=== PATIENT | male | born 1965 | race Caucasian/White ===

== ENCOUNTER 2018-05-08 10:47 | Emergency (ER) | payer OTHER ==
[2018-05-08] MEDS ORDERED: BUPIVACAINE 0.5% PF 10 ML VIAL SUBQ STA (11:43)
--- NOTE | 2018-05-08 13:22 | ED Physician Documentation ---
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: No Smoking Status: Never smoker - Immunizations Immunizations are current?: Yes Immunizations: TDAP current <10years PD ED PE NORMAL - Vitals Vital signs reviewed: Yes - Extremities Extremities: Other (1.5 cm lac tip 5th L finger, MSV intact) Results - Vitals Vitals: Vital Signs - 24 hr 05/08/18 10:52 Temperature 36.9 C Heart Rate 94 Respiratory 20 Rate Blood Pressure 124/74 O2 Saturation 97 Oxygen O2 Source Room air Procedures - Laceration (location) L 5th finger Length in cm: 1.5 Wound type: Curved Neurovascular status: Sensory intact, Motor intact Anesthesia: Marcaine 0.5% Wound Preparation: Irrigated copiously NS (nurse) Skin layer closure: Nylon, Size #-0 - enter number (5), Sutures - enter # (3) Other: Patient tolerated well, No complications, Dressing applied, Tetanus UTD Complexity: Simple PD MEDICAL DECISION MAKING - Sepsis Event Vital Signs: Vital Signs - 24 hr 05/08/18 10:52 Temperature 36.9 C Heart Rate 94 Respiratory 20 Rate Blood Pressure 124/74 O2 Saturation 97 Oxygen O2 Source Room air Departure - Departure Disposition: 01 Home, Self Care Clinical Impression: Laceration Condition: Good Instructions: ED Laceration Hand Comments: May wash hand Apply antibiotic ointment twice daily Sutures out in 7 days This wound is low risk for infection - but even low risk wounds with good wound care occasionally get infected - if you notice redness swelling streaks drainage fever or increasing pain, please come back to the ER for a recheck
[2018-05-08] MEDS ORDERED: BACITRACIN OINT TOP ONE (13:24)
[2018-05-08 13:35] VITALS: BP 146/85
== END 2018-05-08 13:42 | disposition home or self-care (01) ==
LOC: ED 10:47
DX: S61.217A Laceration without foreign body of left little finger without damage to nail, initial encounter (principal); W26.0XXA Contact with knife, initial encounter; Y93.G1 Activity, food preparation and clean up; Y92.511 Restaurant or cafe as the place of occurrence of the external cause; Y99.0 Civilian activity done for income or pay
CPT/HCPCS: 12001; 99282; 99283; A9270; 1040M

== ENCOUNTER 2018-06-24 02:50 | Outpatient (CLI) | payer SELFPAY | END 2018-06-24 02:51 | disposition short-term general hospital (02) | LOC: EMS 02:50 | PROVIDERS: ATTEND Surgery | DX: T21.34XA Burn of third degree of lower back, initial encounter (principal); T24.391A Burn of third degree of multiple sites of right lower limb, except ankle and foot, initial encounter; X01.0XXA Exposure to flames in uncontrolled fire, not in building or structure, initial encounter; Y92.833 Campsite as the place of occurrence of the external cause ==

== ENCOUNTER 2019-05-21 17:17 | Emergency (ER) | payer OTHER, MEDICAID ==
--- NOTE | 2019-05-21 18:12 | XRAY Report ---
Reason: Trauma Procedure Date: 05/21/2019 Accession Number: [id number] / [id number] Procedure: XR - Finger(s) LT CPT Code: FULL RESULT: EXAM: LEFT 4th DIGIT RADIOGRAPHY EXAM DATE: 05/21/2019 05:46 PM. CLINICAL HISTORY: Trauma. COMPARISON: None. TECHNIQUE: 3 views. FINDINGS: Bones: Normal. No fracture or bone lesion. Joints: Normal. No subluxations. Soft Tissues: Normal. No soft tissue swelling. IMPRESSION: No acute displaced fracture or malalignment. Unremarkable soft tissues. RADIA
[2019-05-21 19:28] VITALS: BP 166/83
--- NOTE | 2019-05-21 21:08 | ED Physician Documentation ---
History of Present Illness - Stated complaint Stated Complaint: L FINGER LAC - Chief complaint Chief Complaint: Laceration - Additonal information Additional information: This is a 54-year-old male who presents with a injury to his left index finger middle finger and pinky. He was at work and his finger got stuck in a sliding door track. States that they had to pry open the door to remove his fingers. He had immediate bleeding over his left ring finger. He denies injury elsewhere into his body. He is up-to-date with his tetanus, which was last given 4 years ago. His pain is currently mild-moderate, worse with direct palpation. 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) - Past Surgical History Past Surgical History: No - Present Medications Home Medications: Ambulatory Orders Medication Instructions Recorded Confirmed No Known Home Medications 05/08/18 05/08/18 - Allergies Allergies/Adverse Reactions: Allergies Allergy/AdvReac Type Severity Reaction Status Date / Time Penicillins Allergy Hives Verified 05/08/18 10:54 - Social History Does the pt smoke?: No Smoking Status: Never smoker - Immunizations Immunizations are current?: Yes Immunizations: TDAP current <10years PD ED PE NORMAL - Vitals Vital signs reviewed: Yes - General General: Alert and oriented X 3, No acute distress - HEENT HEENT: Atraumatic - Cardiac Cardiac: Strong equal pulses - Respiratory Respiratory: No respiratory distress - Abdomen Abdomen: Non distended - Extremities Extremities: Other (There is a 1.5 cm laceration on the distal palmar aspect of the index finger which has constant oozing. Sensation Just distal to the laceration is reduced, otherwise sensation is normal over the it is mildly tender to palpation over the area the laceration, the remainder of the digit is nontender. He is able to flex his DIP, as well as PIP and MCP without issue. Capillary refill is brisk. ) - Neuro Neuro: Alert and oriented X 3 - Psych Psych: Normal mood, Normal affect Results - Vitals Vitals: Vital Signs - 24 hr 05/21/19 05/21/19 17:30 19:27 Temperature 36.4 C L Heart Rate 80 83 Respiratory 15 16 Rate Blood Pressure 160/102 H 166/83 H O2 Saturation 98 98 Oxygen O2 Source Room air - Rads (name of study) left Radiology: Other (No bony abnormalities) Procedures - Laceration (location) left ring finger Length in cm: 1.5 Wound type: Linear Neurovascular status: Motor intact, Vascular intact Tendon involvement: Tendon intact Anesthesia: Lidocaine 1%, With bicarb Wound Preparation: Irrigated copiously NS, Wound explored, To the base Skin layer closure: Other (5-0 ethilon, simple interrupted) Other: Patient tolerated well, No complications, Neurovascular intact, Dressing applied, Tetanus UTD Complexity: Simple PD MEDICAL DECISION MAKING - ED course Complexity details: considered differential (Laceration, fracture, contusion, crush injury) ED course: On exam patient is neurovascularly intact, he has 1 laceration to his left index finger which does require repair. He does have very slight abrasions to his pinky and middle finger, these fingers are nontender and have no lacerations that require repair. The laceration on the ring finger was repaired as noted above. X-ray shows no fracture of the fingers and given his exam I have a low suspicion for occult fracture. His Tdap is up-to-date. I discussed wound care and the timeline for suture follow-up. Also discussed return precautions with emphasis on signs of infection. Patient agreed with this plan and was discharged home. Departure - Departure Disposition: 01 Home, Self Care Clinical Impression: Laceration Condition: Good Instructions: ED Laceration Ext Sutr Stap Tape Follow-Up: Your,PCP [Other] (For suture removal in 7-10 days) Comments: Your stitches should be removed in 7 to 10 days. You may shower run water over the finger, but do not soak or scrub it. Keep a clean bandage over the finger. If you develop signs of infection such as redness streaking up your hand, Return to the emergency department. Discharge Date/Time: 05/21/19 23:20
[2019-05-21] MEDS ORDERED: BUFFERED LIDOCAINE 10 ML SYRINGE SUBQ STA (22:08)
== END 2019-05-21 23:20 | disposition home or self-care (01) ==
LOC: ED 17:17
DX: S61.215A Laceration without foreign body of left ring finger without damage to nail, initial encounter (principal); S61.211A Laceration without foreign body of left index finger without damage to nail, initial encounter; S60.413A Abrasion of left middle finger, initial encounter; S60.417A Abrasion of left little finger, initial encounter; W23.0XXA Caught, crushed, jammed, or pinched between moving objects, initial encounter; Y99.0 Civilian activity done for income or pay
CPT/HCPCS: 1040M; 12001; 73140; 99283

== ENCOUNTER 2019-06-06 13:08 | Emergency (ER) | payer MEDICAID, OTHER ==
[2019-06-06 13:15] VITALS: BP 134/89
--- NOTE | 2019-06-06 13:53 | ED Physician Documentation ---
PD HPI SKIN - Stated complaint Stated Complaint: STITCH REMOVAL - Chief complaint Chief Complaint: Wound - History obtained from History obtained from: Patient - History of Present Illness Timing - onset: Other (Stitches to the left fourth finger 2 weeks ago. No apparent complications. Here for removal. 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) - Past Surgical History Past Surgical History: No - Present Medications Home Medications: Ambulatory Orders Medication Instructions Recorded Confirmed No Known Home Medications 05/08/18 05/08/18 - Allergies Allergies/Adverse Reactions: Allergies Allergy/AdvReac Type Severity Reaction Status Date / Time Penicillins Allergy Hives Verified 05/08/18 10:54 - Social History Does the pt smoke?: No Smoking Status: Never smoker - Immunizations Immunizations are current?: Yes Immunizations: TDAP current <10years PD ED PE NORMAL - Vitals Vital signs reviewed: Yes - General General: Alert and oriented X 3, No acute distress - Extremities Extremities: Other (4 stitches in the left fourth finger, no evidence of infection or dehiscence. They were removed during examination without issue.) - Neuro Neuro: Alert and oriented X 3, Normal speech Results - Vitals Vitals: Vital Signs - 24 hr 06/06/19 13:12 Temperature 36.5 C Heart Rate 96 Respiratory 18 Rate Blood Pressure 134/89 H O2 Saturation 100 Oxygen O2 Source Room air Departure - Departure Disposition: 01 Home, Self Care Clinical Impression: Visit for suture removal Condition: Good Record reviewed to determine appropriate education?: Yes
== END 2019-06-06 13:53 | disposition home or self-care (01) ==
LOC: ED 13:08
DX: S61.215D Laceration without foreign body of left ring finger without damage to nail, subsequent encounter (principal); X58.XXXD Exposure to other specified factors, subsequent encounter
CPT/HCPCS: 99281

== ENCOUNTER 2019-07-18 10:48 | Emergency (ER) | payer MEDICAID ==
--- NOTE | 2019-07-18 11:18 | ED Physician Documentation ---
PD HPI LOWER EXT INJURY - Stated complaint Stated Complaint: RT FOOT PX - Chief complaint Chief Complaint: Ext Problem - History obtained from History obtained from: Patient - History of Present Illness PD HPI LOW EXT INJURY LOCATION: Right, Foot Type of injury: No: Fall, Twist, Blunt / blow, Penetrating / stab / GSW, Laceration, Puncture wound, Foreign body, Crush, Burn, Other Timing - onset: How many days ago (5) Timing - duration: Days (5) Timing - details: Gradual onset Pain level max: 10 Pain level now: 4 Improved by: Other (Tylenol with some relief) Worsened by: Moving, Palpating, Other (standing) Associated symptoms: Tingling (Ball of the foot and great toe), Swelling (dorsal foot). 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 Since that time 5 days ago however he has had increasing pain in the foot up to a 10 out of 10 when he tries to walk on it. Just sitting here talking me is about a 4 out of 10. Seems to be sore at the ball of his foot whenever he puts weight on it but then also at the metatarsal tarsal joint laterally in the foot and he noticed some swelling in it today. Is a little bit of tingling in the ball of his foot but also add across the big toe. He denies any known injury. He is not diabetic. He is been taking Tylenol that seemed to help the pain a little bit. Denies any history of gout but has a family history of gout. He has not had fever. Other than his chronic stiffness in his hands he has not had no other joint involvement. 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) - Past Surgical History Past Surgical History: No - Present Medications Home Medications: Ambulatory Orders Medication Instructions Recorded Confirmed No Known Home Medications 05/08/18 05/08/18 - Allergies Allergies/Adverse Reactions: Allergies Allergy/AdvReac Type Severity Reaction Status Date / Time Penicillins Allergy Hives Verified 07/18/19 10:54 - Social History Does the pt smoke?: No Smoking Status: Never smoker - Immunizations Immunizations are current?: Yes Immunizations: TDAP current <10years PD ED PE NORMAL - Vitals Vital signs reviewed: Yes - General General: Alert and oriented X 3, No acute distress, Well developed/nourished - HEENT HEENT: Atraumatic - Derm Derm: Normal color, Warm and dry, No rash - Extremities Extremities: Other (Minimal edema noted to the dorsal aspect of the right foot and some slight erythema but no associated warmth. There is tenderness at the tarsometatarsal joint along the lateral dorsal foot. He has a palpable dorsalis pedis pulse he is able to wiggle his toes and sensation is intact to light touch. There are no lesions noted on the sole of his foot and the webspaces are clear without any lesions. No swelling or pain at the first MTP joint.) - Neuro Neuro: Alert and oriented X 3, No motor deficit, No sensory deficit - Psych Psych: Normal mood, Normal affect Results - Vitals Vitals: Vital Signs - 24 hr 07/18/19 10:54 Temperature 36.5 C Heart Rate 95 Respiratory 18 Rate Blood Pressure 140/80 H O2 Saturation 97 Oxygen O2 Source Room air - Labs Labs: Laboratory Tests 07/18/19 07/18/19 11:55 11:55 WBC 7.1 RBC 4.70 Hgb 14.5 Hct 43.0 MCV 91.5 MCH 30.9 MCHC 33.7 RDW 12.8 Plt Count 235 MPV 9.4 Neut # (Auto) 4.6 Lymph # (Auto) 1.6 [place] # (Auto) 0.6 Eos # (Auto) 0.2 Baso # (Auto) 0.1 Absolute Nucleated RBC 0.00 Nucleated RBC % 0.0 Uric Acid 5.5 - Rads (name of study) right foot Radiology: EMP read indepedently, EMP read contemporaneously (neg fracture), See rad report (small bunion) PD MEDICAL DECISION MAKING - ED course Complexity details: d/w patient ED course: Imaging showed no obvious fracture or significant arthritis. The radiologist read a small bunion noted. His white blood cell count is normal and uric acid is normal. Will discuss results and recommend ibuprofen as an anti- inflammatory. Minimizing weightbearing currently and follow-up with primary care provider if his symptoms persist for further management. Departure - Departure Disposition: Home, Self Care Clinical Impression: Sprain of foot, right Qualifiers: Encounter type: initial encounter Qualified Code(s): S93.601A - Unspecified sprain of right foot, initial encounter Condition: Good Instructions: ED Sprain Foot Follow-Up: [facility] [Provider Group] Comments: Take ibuprofen or Aleve [id number] for the pain and swelling. Elevate and ice the foot to help with the pain. Minimize the amount of walking you are doing for the time being. Follow-up with your primary care provider if the symptoms are not resolving over the course of 7 to 10 days. Follow-up sooner if you have increased swelling, develop a fever, have red streaking up the leg or other problems arise.
[2019-07-18] MEDS ORDERED: IBUPROFEN 600 MG TABLET PO STA (11:36)
[2019-07-18 12:12] LABS: BASOPHILS # (AUTO) 0.1 10^3/uL (0.0-0.1); BASOPHILS % (AUTO) 0.8 %; EOSINOPHILS # (AUTO) 0.2 10^3/uL (0.0-0.7); EOSINOPHILS % (AUTO) 3.2 %; HGB - HEMOGLOBIN 14.5 g/dL (14.0-18.0); LYMPHOCYTES # (AUTO) 1.6 10^3/uL (1.5-3.5); LYMPHOCYTES % (AUTO) 22.5 %; MEAN CORPUSCULAR HEMOGLOBIN 30.9 pg (27.0-31.0); MEAN CORPUSCULAR HGB CONC 33.7 g/dL (32.0-36.0); MEAN CORPUSCULAR VOLUME 91.5 fL (80.0-94.0); MEAN PLATELET VOLUME 9.4 fL (7.4-11.4); MONOCYTES # (AUTO) 0.6 10^3/uL (0.0-1.0); MONOCYTES % (AUTO) 8.3 %; NEUTROPHILS # (AUTO) 4.6 10^3/uL (1.5-6.6); NEUTROPHILS % (AUTO) 64.8 %; PLT - PLATELET COUNT 235 10^3/uL (130-450); RED CELL DISTRIBUTION WIDTH 12.8 % (12.0-15.0); WHITE BLOOD COUNT 7.1 x10^3/uL (4.8-10.8)
--- NOTE | 2019-07-18 12:13 | XRAY Report ---
Reason: right foot pain Procedure Date: 07/18/2019 Accession Number: [id number] / [id number] Procedure: XR - Foot 3 View RT CPT Code: Final Report FULL RESULT: EXAM: RIGHT FOOT RADIOGRAPHY EXAM DATE: 07/18/2019 11:49 AM. CLINICAL HISTORY: Right foot pain. COMPARISON: None. TECHNIQUE: 3 views. FINDINGS: Bones: No fracture. No bone lesion. Joints: No dislocation. Hallux valgus with first metatarsal phalangeal joint angle measuring 24 degrees. Soft Tissues: Normal. No soft tissue swelling. IMPRESSION: 1. No fracture or dislocation. 2. Small bunion RADIA
[2019-07-18 12:53] VITALS: BP 136/90
== END 2019-07-18 13:02 | disposition home or self-care (01) ==
LOC: ED 10:48
DX: S93.601A Unspecified sprain of right foot, initial encounter (principal); X58.XXXA Exposure to other specified factors, initial encounter; M21.611 Bunion of right foot; M20.11 Hallux valgus (acquired), right foot
CPT/HCPCS: 36415; 73630; 84550; 85025; 99281; 99282; A9270

== ENCOUNTER 2019-07-26 11:02 | Outpatient (CLI) | payer MEDICAID ==
--- NOTE | 2019-07-26 16:00 | XRAY Report ---
Reason: FOOT PAIN, RIGHT Procedure Date: 07/26/2019 Accession Number: [id number] / [id number] Procedure: XRS - Foot 3 View RT CPT Code: Final Report FULL RESULT: EXAM: RIGHT FOOT RADIOGRAPHY EXAM DATE: 07/26/2019 11:14 AM. CLINICAL HISTORY: Foot pain, right. COMPARISON: FOOT 3 VIEW RT 07/18/2019 11:31 AM. TECHNIQUE: 3 views. FINDINGS: Bones: Normal. No fractures or bone lesions. Joints: Normal. No subluxations. Soft Tissues: Normal. No soft tissue swelling. IMPRESSION: Stable exam with no acute or subacute abnormality detected. RADIA
[2019-07-26 17:16] LABS: BASOPHILS # (AUTO) 0.1 10^3/uL (0.0-0.1); BASOPHILS % (AUTO) 0.8 %; EOSINOPHILS # (AUTO) 0.1 10^3/uL (0.0-0.7); EOSINOPHILS % (AUTO) 1.7 %; LYMPHOCYTES # (AUTO) 1.5 10^3/uL (1.5-3.5); LYMPHOCYTES % (AUTO) 17.8 %; MEAN CORPUSCULAR HEMOGLOBIN 29.4 pg (27.0-31.0); MEAN CORPUSCULAR HGB CONC 32.2 g/dL (32.0-36.0); MEAN CORPUSCULAR VOLUME 91.2 fL (80.0-94.0); MEAN PLATELET VOLUME 9.9 fL (7.4-11.4); MONOCYTES # (AUTO) 0.5 10^3/uL (0.0-1.0); MONOCYTES % (AUTO) 5.5 %; NEUTROPHILS # (AUTO) 6.2 10^3/uL (1.5-6.6); NEUTROPHILS % (AUTO) 73.7 %; PLT - PLATELET COUNT 259 10^3/uL (130-450); RED BLOOD COUNT 5.11 10^6/uL (4.70-6.10); RED CELL DISTRIBUTION WIDTH 13.2 % (12.0-15.0); WHITE BLOOD COUNT 8.4 x10^3/uL (4.8-10.8)
== END 2019-07-26 11:03 | disposition home or self-care (01) ==
LOC: DI.S 11:02
PROVIDERS: ATTEND Family Medicine
DX: M79.671 Pain in right foot (principal)
CPT/HCPCS: 36415; 85025; 85651; 86140

== ENCOUNTER 2023-01-09 08:00 | Outpatient (CLI) | payer MEDICAID | END 2023-01-09 23:59 | disposition home or self-care (01) | LOC: LAB 08:00 | PROVIDERS: ATTEND Internal Medicine | DX: J02.9 Acute pharyngitis, unspecified (principal) | CPT/HCPCS: 87070 ==

== ENCOUNTER 2023-03-12 16:20 | Outpatient (CLI) | payer MEDICAID ==
[2023-03-12 21:28] LABS: BILIRUBIN,URINE NEGATIVE (NEGATIVE); GLUCOSE, URINE (UA) NEGATIVE (NEGATIVE); KETONES,URINE (UA) NEGATIVE (NEGATIVE); LEUKOCYTE ESTERASE, URINE NEGATIVE (NEGATIVE); NITRITE,URINE NEGATIVE (NEGATIVE); OCCULT BLOOD,URINE LARGE (NEGATIVE); PH,URINE 5.5 PH (5.0-7.5); PROTEIN,URINE 100 mg/dL (NEGATIVE); UROBILINOGEN,URINE 0.2 (NORMAL) E.U./dL (NORMAL)
[2023-03-12 21:33] LABS: CLARITY,URINE CLOUDY (CLEAR)
[2023-03-12 21:37] LABS: BACTERIA,URINE None Seen /HPF (None Seen); RBC,URINE TNTC /HPF (0-5); SQUAMOUS EPITHELIAL CELL,UR NONE SEEN (<= Few); WBC,URINE 0-3 /HPF (0-3)
--- NOTE | 2023-03-12 23:32 | XRAY Report ---
PROCEDURE: Abdomen 1 View X-Ray INDICATIONS: HEMATURIA TECHNIQUE: One view of the abdomen acquired. COMPARISON: None. FINDINGS: Surgical changes and devices: None. Bowel: Bowel gas pattern is normal. Soft tissues: No definite radiopaque renal stones identified. There are 2 small densities projecting over the right hemipelvis measuring up to 0.2 cm suggestive of phleboliths. Bones: No suspicious bony lesions. IMPRESSION: 1. No definite radiopaque renal stones. Reviewed by: Chay Pink MD on 03/12/2023 11:31 PM PDT Approved by: Chay Pink MD on 03/12/2023 11:31 PM PDT Station ID: [id number]
== END 2023-03-12 23:59 | disposition home or self-care (01) ==
LOC: DI.S 16:20
PROVIDERS: ATTEND Emergency Medicine
DX: R31.9 Hematuria, unspecified (principal)
CPT/HCPCS: 81001; 87086

== ENCOUNTER 2023-03-12 21:35 | Emergency (ER) | payer MEDICAID ==
--- NOTE | 2023-03-12 22:16 | ED Physician Documentation ---
History of Present Illness - Stated complaint Stated Complaint: MALE - Chief complaint Chief Complaint: Abd Pain - History obtained from History obtained from: Patient - Additonal information Additional information: 4-year-old man presents to the emergency department with nonbloody nonbilious nausea and vomiting and right lower quadrant pain today. He was seen in clinic and had a urinalysis showing large amount of blood but no infection. Denies fever Review of Systems Constitutional: denies: Fever Cardiac: denies: Chest pain / pressure Respiratory: denies: Dyspnea GI: reports: Abdominal Pain, Nausea, Vomiting. denies: Diarrhea, Bloody / black stool : reports: Hematuria (discoloration of urine). 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) - Past Surgical History Past Surgical History: No - Present Medications Home Medications: Ambulatory Orders Medication Instructions Recorded Confirmed Atorvastatin Calcium 1 cap PO DAILY 03/12/23 Metoprolol/Hydrochlorothiazide 1 cap PO DAILY 03/12/23 [Metoprolol-Hctz 50-25 mg Tab] Sertraline [Zoloft] 25 mg PO DAILY 03/12/23 - Allergies Allergies/Adverse Reactions: Allergies Allergy/AdvReac Type Severity Reaction Status Date / Time Penicillins Allergy Hives Verified 03/12/23 21:48 - Social History Does the pt smoke?: No Smoking Status: Never smoker Does the pt drink ETOH?: No - Immunizations Immunizations are current?: Yes Immunizations: TDAP current <10years PD ED PE NORMAL - Vitals Vital signs reviewed: Yes - General General: Alert and oriented X 3, Well developed/nourished, Other (mild to moderate distress) - HEENT HEENT: Atraumatic, PERRL, EOMI - Neck Neck: Supple, no meningeal sign - Cardiac Cardiac: RRR - Respiratory Respiratory: No respiratory distress, Clear bilaterally - Abdomen Abdomen: Non tender, Non distended - Derm Derm: Normal color, Warm and dry - Extremities Extremities: No deformity - Neuro Neuro: No motor deficit, No sensory deficit - Psych Psych: Normal mood, Normal affect Results - Vitals Vitals: Vital Signs - 24 hr 03/12/23 21:36 Temperature 3.5 C L Heart Rate 74 Respiratory 17 Rate Blood Pressure 185/97 H O2 Saturation 98 Oxygen O2 Source Room air - Labs Labs: Laboratory Tests 03/12/23 03/12/23 22:51 22:51 WBC 14.4 H RBC 4.69 L Hgb 13.3 L Hct 41.1 L MCV 87.6 MCH 28.4 MCHC 32.4 RDW 13.8 Plt Count 259 MPV 9.9 Neut # (Auto) 12.4 H Lymph # (Auto) 1.3 L [place] # (Auto) 0.5 Eos # (Auto) 0.1 Baso # (Auto) 0.1 Absolute Nucleated RBC 0.00 Nucleated RBC % 0.0 Sodium 132 L Potassium 3.4 L Chloride 100 L Carbon Dioxide 22 Anion Gap 10.0 BUN 13 Creatinine 1.4 H Estimated GFR (MDRD) 52 L Glucose 194 H Calcium 9.1 PD Medical Decision Making - ED course ED course: 58-year-old man presents to the ED with suspected kidney stones. UA showed large blood and protein but no signs of infection. CBC, abdominal panel ordered. CT without contrast ordered as well. Pain controlled with IV morphine and Zofran. labs significant for mild ruiz with cre 1.4, up from baseline of 1. also with leukocytosis Wbc 14.4 but u/a showed no infection and he is afebrile. likely inflammatory reaction. ct report pending. Departure - Departure Clinical Impression: RUIZ (acute kidney injury) Forms: PCP List
[2023-03-12] MEDS ORDERED: ONDANSETRON ODT 4 MG TABLET TL STA (22:33)
[2023-03-12] MEDS ORDERED: oxyCODONE 5 MG TABLET PO STA (22:33)
[2023-03-12 22:59] LABS: BASOPHILS # (AUTO) 0.1 10^3/uL (0.0-0.1); BASOPHILS % (AUTO) 0.6 %; EOSINOPHILS # (AUTO) 0.1 10^3/uL (0.0-0.7); EOSINOPHILS % (AUTO) 0.6 %; HCT - HEMATOCRIT 41.1 % (42.0-52.0); HGB - HEMOGLOBIN 13.3 g/dL (14.0-18.0); LYMPHOCYTES # (AUTO) 1.3 10^3/uL (1.5-3.5); LYMPHOCYTES % (AUTO) 8.9 %; MEAN CORPUSCULAR HEMOGLOBIN 28.4 pg (27.0-31.0); MEAN CORPUSCULAR HGB CONC 32.4 g/dL (32.0-36.0); MEAN CORPUSCULAR VOLUME 87.6 fL (80.0-94.0); MEAN PLATELET VOLUME 9.9 fL (7.4-11.4); MONOCYTES # (AUTO) 0.5 10^3/uL (0.0-1.0); MONOCYTES % (AUTO) 3.7 %; NEUTROPHILS # (AUTO) 12.4 10^3/uL (1.5-6.6); NEUTROPHILS % (AUTO) 85.7 %; PLT - PLATELET COUNT 259 10^3/uL (130-450); RED BLOOD COUNT 4.69 10^6/uL (4.70-6.10); RED CELL DISTRIBUTION WIDTH 13.8 % (12.0-15.0); WHITE BLOOD COUNT 14.4 x10^3/uL (4.8-10.8)
[2023-03-12 23:03] LABS: CALCIUM 9.1 mg/dL (8.5-10.3); CREATININE 1.4 mg/dL (0.6-1.2); POTASSIUM 3.4 mmol/L (3.5-5.0)
--- NOTE | 2023-03-12 23:47 | CT Report ---
PROCEDURE: ABDOMEN/PELVIS WO INDICATIONS: flank pain TECHNIQUE: A CT scan of the abdomen and pelvis was performed without the use of intravenous contrast. Images we re recorded and evaluated at appropriate window settings. Reformats: coronal and sagittal. For radiat ion dose reduction, the following was used: automated exposure control, adjustment of mA and/or kV ac cording to patient size. COMPARISON: None. FINDINGS: Image quality: Excellent. Lung bases: There is mild dependant atelectasis. Heart: Heart is normal in size. URINARY: Right Kidney and Ureter: There is mild right hydroureteronephrosis with perinephric and periureteral fat stranding. There is a punctate stone within the distal right ureter just proximal to the uretero vesicular junction. No additional stones in the right kidney. Left Kidney and Ureter: No stones or hydronephrosis. No hydroureter. Bladder:The bladder is partially distended limiting evaluation of wall thickness. No stones. ABDOMEN: Liver: Noncontrast evaluation of the liver demonstrates no discrete mass. Gallbladder: Within normal limits without calcified gallstones. Biliary ducts: No biliary ductal dilatation. Pancreas: Unremarkable. Spleen: Normal in size. Adrenal Glands: No adrenal nodules. Stomach and Bowel: Stomach, small bowel loops, and colon are normal in caliber and wall thickness. T he appendix is normal. Peritoneum: No abnormal intraperitoneal fluid. No free air. Ventral Wall: No hernia. Abdominal Nodes: No retroperitoneal or mesenteric adenopathy by size criteria. Vessels: Aorta and inferior vena cava are normal in size. PELVIS: Pelvic Organs: Unremarkable. Pelvic Nodes: No enlarged lymph nodes. Miscellaneous: There are bilateral small fat-containing inguinal hernias.. Bones: Visualized osseous structures demonstrate no suspicious focal lesions. IMPRESSION: 1. Mild right hydroureteronephrosis with perinephric and perirenal fat stranding. Findings may reflec t sequelae of a punctate distal right ureteral stone versus a recently passed stone. 2. No evidence of appendicitis. Reviewed by: Chay Pink MD on 03/12/2023 11:46 PM PDT Approved by: Chay Pink MD on 03/12/2023 11:46 PM PDT Station ID: [id number]
[2023-03-13 01:29] VITALS: BP 151/89; O2SAT 94
== END 2023-03-13 01:25 | disposition home or self-care (01) ==
LOC: ED 21:35
DX: N13.2 Hydronephrosis with renal and ureteral calculous obstruction (principal); N17.9 Acute kidney failure, unspecified
CPT/HCPCS: 36415; 74018; 74176; 80048; 81001; 85025; 99284; A9270; Q0162; 87086

== ENCOUNTER 2023-04-22 16:09 | Outpatient (CLI) | payer MEDICAID ==
--- NOTE | 2023-04-22 17:25 | XRAY Report ---
PROCEDURE: Finger(s) LT INDICATIONS: PAIN IN LEFT THUMB TECHNIQUE: AP hand, 2 views of the first finger(s) acquired. COMPARISON: 05/21/2019 FINDINGS: Bones: Mildly displaced and comminuted distal phalangeal fracture extending to the base and interpha langeal joint. Possible small bone islands seen on the fourth middle phalanx and third middle phalanx, unchanged. Soft tissues: No suspicious calcifications. Mild thumb base degenerative changes. IMPRESSION: Distal phalanx fracture. Reviewed by: Derrick Jones MD on 04/22/2023 5:24 PM PDT Approved by: Derrick Jones MD on 04/22/2023 5:24 PM PDT Station ID: [id number]
== END 2023-04-22 23:59 | disposition home or self-care (01) ==
LOC: DI.S 16:09
PROVIDERS: ATTEND Nurse Practitioner
DX: S62.522A Displaced fracture of distal phalanx of left thumb, initial encounter for closed fracture (principal)

== ENCOUNTER 2023-05-14 12:38 | Outpatient (CLI) | payer MEDICAID ==
[2023-05-14] MEDS ORDERED: iohexoL-300 100 ML VIAL IVP ONE (13:47)
--- NOTE | 2023-05-14 15:30 | CT Report ---
PROCEDURE: IVP INDICATIONS: GROSS HEMATURIA CONTRAST: 140mL Omni 300 TECHNIQUE: After the administration of intravenous contrast, 5 mm thick sections acquired from the diaphragms to the symphysis. 5 mm thick coronal and sagittal reformats were acquired. For radiation dose reducti on, the following was used: automated exposure control, adjustment of mA and/or kV according to leo ent size. COMPARISON: None. FINDINGS: Image quality: Excellent. Urinary system: Both kidneys are normal in size. No hydronephrosis or nephrolithiasis on pre-contras t images. No solid masses or complex cysts which require follow up. The opacified renal calyces and ureters appear normal, without filling defect. Bladder wall thickness is normal, accounting for unde rdistention. No calcified bladder stones. No filling defect within the opacified bladder. OTHER Lung bases and heart: Subcutaneous nodule overlying the left lateral chest wall measuring 0.8 cm. Liver: No solid mass. Gallbladder and biliary tree: No radiopaque stones or wall thickening. No biliary dilation. Spleen: No splenomegaly. Pancreas: No pancreatic ductal dilation. Adrenals: No adrenal nodule. Bowel and peritoneum: No bowel distension. No pathologic free fluid. Abdominal Lymph nodes: No central or retroperitoneal adenopathy. Vessels: Unremarkable. Reproductive organs: Unremarkable. Pelvic Lymph nodes: Unremarkable. Bones: No aggressive osseous abnormality. No significant degenerative changes of the spine. Other: Small umbilical hernia containing fat. Moderate fat within the inguinal canals. IMPRESSION: No nephrolithiasis or filling defect within the opacified renal collecting system. Urinary bladder is incompletely distended with contrast. No significant degenerative disc disease of the spine. Subcutaneous days nodule overlying the left lateral chest wall measuring 0.8 cm. Findings probably re present an epidermal inclusion cyst, less likely melanoma. Dr. mooney is recommended. Moderate fat within the inguinal canals. Reviewed by: Pranav Puga on 05/14/2023 3:29 PM PDT Approved by: Pranav Puga on 05/14/2023 3:29 PM PDT Station ID: [id number]
== END 2023-05-14 12:39 | disposition home or self-care (01) ==
LOC: DI 12:38
PROVIDERS: ATTEND Physician Assistant Medical
DX: R31.0 Gross hematuria (principal)
CPT/HCPCS: 74178; Q9967

== ENCOUNTER 2023-05-25 16:03 | Outpatient (CLI) | payer MEDICAID ==
--- NOTE | 2023-05-25 16:38 | XRAY Report ---
PROCEDURE: Finger(s) LT INDICATIONS: DISPLACED FRACTURE OF LFT TECHNIQUE: AP hand, 2 views of the first finger(s) acquired. COMPARISON: None. FINDINGS: Bones: Mild bone remodeling of the fracture at the base of the distal first phalanx. Soft tissues: No suspicious soft tissue calcifications or masses. IMPRESSION: Mild interval healing of the intervertebral fracture at the base of the distal first phalanx. Reviewed by: Praanv Puga on 05/25/2023 4:36 PM PDT Approved by: Pranav Puga on 05/25/2023 4:36 PM PDT Station ID: [id number]
== END 2023-05-25 16:04 | disposition home or self-care (01) ==
LOC: DI.S 16:03
PROVIDERS: ATTEND Emergency Medicine
DX: S62.522D Displaced fracture of distal phalanx of left thumb, subsequent encounter for fracture with routine healing (principal)

== ENCOUNTER 2023-11-16 11:04 | Outpatient (CLI) | payer MEDICAID ==
[2023-11-16 14:55] LABS: LITHIUM 0.39 mmol/L
[2023-11-16 14:59] LABS: ALBUMIN 4.4 g/dL (3.2-5.5); ALBUMIN/GLOBULIN RATIO 1.6 (1.0-2.2); BILIRUBIN,TOTAL 0.4 mg/dL (0.2-1.0); CALCIUM 9.8 mg/dL (8.5-10.3); CREATININE 1.1 mg/dL (0.6-1.3); POTASSIUM 4.2 mmol/L (3.5-4.5); TOTAL PROTEIN 7.1 g/dL (6.4-8.9)
[2023-11-16 15:09] LABS: THYROID STIMULATING HORMONE 1.69 uIU/mL (0.34-5.60)
== END 2023-11-16 11:05 | disposition home or self-care (01) ==
LOC: LAB.S 11:04
PROVIDERS: ATTEND Nurse Practitioner Psychiatric/Mental Health
DX: F31.81 Bipolar II disorder (principal); Z79.899 Other long term (current) drug therapy
CPT/HCPCS: 36415; 80053; 80178; 81599; 84443

== ENCOUNTER 2023-12-09 14:56 | Outpatient (CLI) | payer MEDICAID | END 2023-12-09 14:57 | disposition home or self-care (01) | LOC: LAB.S 14:56 | PROVIDERS: ATTEND Nurse Practitioner Psychiatric/Mental Health | DX: F31.81 Bipolar II disorder (principal); Z79.899 Other long term (current) drug therapy ==

== ENCOUNTER 2023-12-11 08:30 | Outpatient (CLI) | payer MEDICAID ==
[2023-12-11 15:41] LABS: LITHIUM 0.28 mmol/L
== END 2023-12-11 08:31 | disposition home or self-care (01) ==
LOC: LAB.S 08:30
PROVIDERS: ATTEND Nurse Practitioner Psychiatric/Mental Health
DX: F31.81 Bipolar II disorder (principal); Z79.899 Other long term (current) drug therapy
CPT/HCPCS: 36415; 80178

== ENCOUNTER 2024-01-18 13:58 | Outpatient (CLI) | payer MEDICAID ==
[2024-01-18 20:19] LABS: LITHIUM 0.29 mmol/L
== END 2024-01-18 13:59 | disposition home or self-care (01) ==
LOC: LAB.S 13:58
PROVIDERS: ATTEND Nurse Practitioner Psychiatric/Mental Health
DX: F31.81 Bipolar II disorder (principal); Z79.899 Other long term (current) drug therapy
CPT/HCPCS: 36415; 80178